=== PATIENT | female | born 1960 | race Two or more races ===

== ENCOUNTER → 2016-08-22 | Outpatient (CLI) | payer OTHER ==
[~2016-08-22] MED LIST: HYDROCHLOROTHIA25 MG PO; METFORMIN HCL500 M1 PO; SIMVASTATIN20 MG PO; VIT D PO
--- NOTE | ~2016-08-22 | MY11 ---
[facility] A Service of [facility] RADIOLOGY TEXT RESULTS PATIENT: BRIANNA BOWLING LOCATION: [facility] : 56 UNIT #: [id number] AGE: [address]: Chas Gunn MD SEX: F ORDER DR: [id number] [facility] [address] [place], [place] [address] [id number] O MR#: [id number] Acc #: [id number] NAME: BRIANNA BOWLING : 1960 SEX: F STUDY DATE/TIME: 08/22/2016 12:14 UNIT: [facility] ROOM: STUDY DESCRIPTION: MY Mammogram Screening [place] Attending Physician: Chas Gunn M.D. Ordering Physician: Chas Gunn M.D. Primary Care Physician: Chas Gunn M.D. MEDICAL IMAGING REPORT This report is preliminary unless electronic signature is present EXAM Digital screening mammogram 08/22/2016 HISTORY 56-year-old woman, no risk elevation. Annual screening. COMPARISON 11/22/2012. FINDINGS Digital imaging of each breast was completed utilizing a two-view examination of each breast in craniocaudal and mediolateral-oblique projections. Review and interpretation of digital mammograms include a second review in conjunction with FDA-approved CAD device. There is a normal parenchymal presentation bilaterally consistent with the patient's age. There are no breast masses imaged and no parenchymal asymmetry is visualized. There are no suspicious microcalcifications and I see no focal architectural disturbance. IMPRESSION Negative screening digital mammogram. One-year followup recommended. Patients over the age of 40 are entered into a reminder system with target due date for the next mammogram. A result letter will also be sent to the patient. BIRADS: 1 Negative Dictated by... Cristian Orlando M.D. [facility] A Service of [facility] RADIOLOGY TEXT RESULTS PATIENT: BRIANNA BOWLING LOCATION: [facility] : 56 UNIT #: [id number] AGE: [address]: Chas Gunn MD SEX: F ORDER DR: THIS IS AN ELECTRONICALLY VERIFIED REPORT Cristian Orlando M.D. at 08/23/2016 8:10 AM JUAN/pratik TD: 08/22/2016 18:00 JOB #: [id number] MEDICAL IMAGING REPORT Page 1 of 1 COPY
== END | disposition home or self-care (01) ==
LOC: CWCC 11:45
DX: Z12.31 Encounter for screening mammogram for malignant neoplasm of breast (principal)
CPT/HCPCS: G0202

== ENCOUNTER → 2016-09-22 | Day surgery (SDC) | payer OTHER ==
--- NOTE | ~2016-09-22 | OR ---
Unit #: [id number] #: [id number] Patient: BRIANNA BOWLING [id number] [address] [address] [id number] O MR#: [id number] NAME: BRIANNA BOWLING ROOM: Date of Procedure: 09/22/2016 Admission Date: 09/22/2016 Surgeon: Minor Carias Jr., M.D. : 1960 Attending Physician: Minor Carias Jr., M.D. Primary Care Physician: Chas Gunn M.D. OPERATIVE REPORT INDICATION FOR PROCEDURE The patient is a 56-year-old female who recently presented to the office. She is from [facility] with some Pilar cyst of the scalp. She has multiple Pilar cysts, but 2 are more symptomatic and are larger and enlarging in size and she desires removal of these. She was brought in this time for excision of these under local anesthesia. She understands the procedure including the risks, including that of recurrence, infection, poor healing, and consents. PREOPERATIVE DIAGNOSIS Multiple Pilar cysts of the scalp. POSTOPERATIVE DIAGNOSES Multiple Pilar cysts of the scalp, noting 2 large ones, one approximately 3 cm and the other approximately 2 cm more frontally on the calvaria. ANESTHESIA 1% Xylocaine with epinephrine locally. PROCEDURE PERFORMED Excision of Pilar cyst of the scalp. DESCRIPTION OF PROCEDURE The patient was positioned in supine position. After being shaved, she was prepped and draped in routine fashion. The area of the two symptomatic Pilar cysts, both were with the calvaria. The areas were locally anesthetized with 1% Xylocaine with epinephrine. An elliptical incision was made around the cyst being totally excised from the surrounding tissue. After they were removed, sent to pathology. The skin edges on both wounds were approximated with interrupted 2-0 nylon sutures. Ointment was applied externally. Estimated blood loss minimal. No drains used. No complications. The patient was discharged in satisfactory condition. Dictated by... Minor Carias Jr., M.D. JMB/lety TD: 09/22/2016 23:41 Unit #: [id number] #: [id number] Patient: BRIANNA BOWLING JOB #: [id number] OPERATIVE REPORT Page 1 of 1 X Minor Carias MD PROCEDURE OPERATIVE NOTE
== END | disposition home or self-care (01) ==
LOC: CSUR 07:46
DX: L72.11 Pilar cyst (principal); E11.9 Type 2 diabetes mellitus without complications; I10 Essential (primary) hypertension; E78.5 Hyperlipidemia, unspecified; M17.0 Bilateral primary osteoarthritis of knee; K21.9 Gastro-esophageal reflux disease without esophagitis; G89.29 Other chronic pain; G47.30 Sleep apnea, unspecified; Z79.84 Long term (current) use of oral hypoglycemic drugs; Z79.899 Other long term (current) drug therapy; Z98.890 Other specified postprocedural states
CPT/HCPCS: 82947; 88304